=== PATIENT | male | born 2000 | race Caucasian/White ===

== ENCOUNTER 2024-11-21 13:52 | Emergency (ER) | payer OTHER ==
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
[2024-11-21 14:03] VITALS: RESP 18; TEMP 96.9
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
[2024-11-21 15:27] VITALS: BP 130/70; PULSE 90; O2SAT 97
== END 2024-11-21 15:15 | disposition home or self-care (01) ==
LOC: ED 13:52
DX: H53.149 Visual discomfort, unspecified (principal); G44.309 Post-traumatic headache, unspecified, not intractable; F07.81 Postconcussional syndrome
CPT/HCPCS: 70450; 99283; 99285